=== PATIENT | female | born 1960 | race Asian ===

== ENCOUNTER → 2024-10-16 | Outpatient (CLI) | payer MEDICAID, SELFPAY ==
--- NOTE | 2024-10-16 11:34 | EKG_ITS ---
[facility] Test Date: 2024-10-16 Pat Name: DANGELO ZULUAGA Department: Room: - Gender: Female Chha: PASCUAL : 1960 Requested By: Yessica Fleming Order Number: [id number] Reading MD: Yessica Fleming Measurements Intervals [place] Rate: 71 P: 21 AR: 173 QRS: -15 QRSD: 92 T: 30 QT: 395 QTc: 430 Interpretive Statements SINUS RHYTHM WARNING: DATA QUALITY MAY AFFECT INTERPRETATION Compared to ECG 02/26/2022 11:55:57 Left-axis deviation no longer present /store/S0/[id number]/[id number].pdf
== END | disposition home or self-care (01) ==
LOC: SEKG 11:26
PROVIDERS: PCP Internal Medicine; Referring Provider Internal Medicine; Visit Provider Internal Medicine
DX: R07.9 Chest pain, unspecified (principal)
CPT/HCPCS: 93005